=== PATIENT | female | born 1935 | race Caucasian/White ===

== ENCOUNTER 2017-10-09 04:00 | Emergency (ER) | payer MEDICARE, BC ==
[~2017-10-09] VITALS: Ht 127 cm; Wt 30.0 kg
[~2017-10-09 04:00] MED LIST: NO HOME MEDS
[2017-10-09] MEDS ORDERED: LISI-600 PO (04:13)
[2017-10-09] MEDS ORDERED: HYDROcodone/acetaminophen 5mg/325mg tablet PO ONE (04:30)
[2017-10-09 07:41] VITALS: BP 125/71
== END 2017-10-09 07:43 | disposition home or self-care (01) ==
LOC: ER 04:00
DX: S43.004A Unspecified dislocation of right shoulder joint, initial encounter (principal); M15.9 Polyosteoarthritis, unspecified; I10 Essential (primary) hypertension; Z91.02 Food additives allergy status; Z79.899 Other long term (current) drug therapy; W19.XXXA Unspecified fall, initial encounter; Y93.89 Activity, other specified; Y92.89 Other specified places as the place of occurrence of the external cause; Y99.8 Other external cause status
CPT/HCPCS: 23650; 72125; 72128; 72131; 73020; 99284

== ENCOUNTER 2020-01-15 13:15 | Emergency (ER) | payer MEDICARE, BC ==
[~2020-01-15] VITALS: Ht 134.6 cm; Wt 29.6 kg
[~2020-01-15 13:15] MED LIST changes: +LISI-600 PO; -NO HOME MEDS
--- NOTE | 2020-01-15 13:57 | NUR ---
shoulder xray being done at bedside.
[2020-01-15] MEDS ORDERED: propofol 10mg/ml 20ml vial IV ONE (14:25)
--- NOTE | 2020-01-15 14:50 | NUR ---
DR. BRANNON MANIPULATED RIGHT SHOULDER WITHOUT ANY PROPOFOL, PER PTS REQUEST. PT TOLERATED WELL.
[2020-01-15 14:51] VITALS: BP 182/94
--- NOTE | 2020-01-15 14:54 | NUR ---
REPEAT XRAY COMPLETED FOR POST MANIPULATION
== END 2020-01-15 15:16 | disposition home or self-care (01) ==
LOC: ER 13:15
DX: S43.004A Unspecified dislocation of right shoulder joint, initial encounter (principal); I10 Essential (primary) hypertension; Z98.890 Other specified postprocedural states; Z88.8 Allergy status to other drugs, medicaments and biological substances; Z79.899 Other long term (current) drug therapy; X58.XXXA Exposure to other specified factors, initial encounter; Y93.89 Activity, other specified; Y92.89 Other specified places as the place of occurrence of the external cause; Y99.8 Other external cause status
CPT/HCPCS: 23650; 73020; 73030; 99284

== ENCOUNTER 2021-03-20 16:51 | Emergency (ER) | payer MEDICARE, BC ==
[~2021-03-20] VITALS: Ht 134.6 cm; Wt 29.6 kg
[~2021-03-20 16:51] MED LIST changes: -LISI-600 PO; +LISI20TA28 PO
[2021-03-20] MEDS ORDERED: acetaminophen 325mg tablet PO ONE (18:35)
[2021-03-20] MEDS ORDERED: LIDOcaine 1% 30ml preserv. free vial IJ ONE (19:45)
[2021-03-20 20:55] VITALS: BP 138/72
== END 2021-03-20 20:56 | disposition home or self-care (01) ==
LOC: ER 16:52
DX: S43.004A Unspecified dislocation of right shoulder joint, initial encounter (principal); I10 Essential (primary) hypertension; Z88.8 Allergy status to other drugs, medicaments and biological substances; Z98.890 Other specified postprocedural states; Z91.018 Allergy to other foods; Z79.899 Other long term (current) drug therapy; X58.XXXA Exposure to other specified factors, initial encounter; Y93.89 Activity, other specified; Y92.89 Other specified places as the place of occurrence of the external cause; Y99.8 Other external cause status
CPT/HCPCS: 23650; 73020; 73030; 99284; J2001

== ENCOUNTER 2021-07-03 16:38 | Emergency (ER) | payer MEDICARE, BC ==
[~2021-07-03] VITALS: Ht 157.5 cm; Wt 27.3 kg
[~2021-07-03 16:38] MED LIST changes: +DOCU-148 PO; +LISI10TA27 PO; -LISI20TA28 PO
[2021-07-03 16:58] VITALS: BP 99/56
[2021-07-03] MEDS ORDERED: normal saline 1000ML IV soln IVB ONE (17:35)
--- NOTE | 2021-07-03 17:48 | NUR ---
attempt ekg, pt headed to CT at this time.
[2021-07-03 18:18] LABS: BASOPHILS % (AUTO) 0.1 % (0-1); EOSINOPHILS % (AUTO) 0.5 % (0-6); HEMATOCRIT 38.3 % (35.0-45.0); HEMOGLOBIN 13.1 g/dl (12.0-16.0); LYMPHOCYTES # (AUTO) 0.3 X10'3 (1.1-4.8); LYMPHOCYTES % (AUTO) 3.1 % (21-51); MEAN CORPUSCULAR HEMOGLOBIN 33.9 PG (27.0-31.0); MEAN CORPUSCULAR HGB CONC 34.3 g/dL (33.0-36.5); MEAN CORPUSCULAR VOLUME 98.7 FL (78-98); MEAN PLATELET VOLUME 7.4 FL (7.4-10.4); MONOCYTES # (AUTO) 0.3 X10'3 (0-0.9); MONOCYTES % (AUTO) 3.3 % (2-12); NEUTROPHILS # (AUTO) 8.6 X10'3 (1.8-7.7); PLATELET COUNT 275 X10'3 (140-440); RED BLOOD COUNT 3.88 X10'6 (4.20-5.60); RED CELL DISTRIBUTION WIDTH 14.4 % (11.5-14.5); WHITE BLOOD COUNT 9.2 X10'3 (4.5-11.0)
[2021-07-03 18:25] LABS: APTT 26 SECONDS (22-32)
[2021-07-03 18:32] LABS: ALANINE AMINOTRANSFERASE 50 U/L (12-78); ALBUMIN 3.4 G/DL (3.4-5.0); ALBUMIN/GLOBULIN RATIO 1.3 (1.1-1.5); ALKALINE PHOSPHATASE 130 IU/L (46-116); ANION GAP 6 (8-16); ASPARTATE AMINO TRANSFERASE 38 U/L (10-37); BILIRUBIN,TOTAL 0.4 MG/DL (0.1-1.0); BLOOD UREA NITROGEN 21 MG/DL (7-18); BUN/CREATININE RATIO 36.8 (6.6-38.0); CALCIUM 8.8 MG/DL (8.5-10.1); CHLORIDE 103 MMOL/L (99-107); CREATININE 0.57 MG/DL (0.40-0.90); GLUCOSE 97 MG/DL (70-104); LIPASE 236 U/L (73-393); POTASSIUM 4.6 MMOL/L (3.5-5.1); SODIUM 141 MMOL/L (135-145); TOTAL CARBON DIOXIDE 31.8 MMOL/L (24-32); eGFR > 90 ML/MIN
[2021-07-03 19:08] LABS: CLARITY,URINE SLIGHTLY CLOUDY (Clear); COLOR,URINE YELLOW (Yellow); GLUCOSE, URINE NEGATIVE (Neg); KETONES,URINE NEGATIVE (Neg); LEUKOCYTE ESTERASE ,URINE NEGATIVE (Neg); NITRITES, URINE NEGATIVE (Neg); OCCULT BLOOD,URINE NEGATIVE (Neg); PROTEIN,URINE NEGATIVE (Neg); UROBILINOGEN,URINE 0.2 E.U/dL (0.2-1.0)
[2021-07-03 19:21] LABS: UA COLLECTION TYPE CLN CATCH MIDSTREAM
[2021-07-03 19:22] LABS: AMORPHOUS URATES 1+; SQUAMOUS EPITHELIAL CELL,UR FEW /LPF (FEW)
[2021-07-03 19:23] LABS: BACTERIA,URINE 4+ /HPF (Neg); RBC,URINE 0-2 /HPF (0-2); WBC,URINE 0-4 /HPF (0-4)
--- NOTE | 2021-07-03 19:31 | NUR ---
[facility]MA STARTED STARTED TO PRODUCE STOOL
--- NOTE | 2021-07-03 21:06 | NUR ---
CONTACTED JOSE CARGO FOR PT TO GO BACK TO [facility] @20:56
--- NOTE | 2021-07-03 21:36 | NUR ---
pt had large bm from [facility] pt was cleaned up and new depends was placed
== END 2021-07-03 22:04 | disposition home or self-care (01) ==
LOC: ER 16:39
DX: R11.2 Nausea with vomiting, unspecified (principal); Z20.822 Contact with and (suspected) exposure to COVID-19; K59.00 Constipation, unspecified; F03.90 Unspecified dementia, unspecified severity, without behavioral disturbance, psychotic disturbance, mood disturbance, and anxiety; I10 Essential (primary) hypertension; Z98.890 Other specified postprocedural states; Z88.8 Allergy status to other drugs, medicaments and biological substances; Z79.899 Other long term (current) drug therapy
CPT/HCPCS: 36415; 71045; 74176; 80053; 81001; 83690; 83735; 85025; 85610; 85730; 87088; 87186; 87635; 93005; 99285; C9803; J7030; 87077

== ENCOUNTER 2021-08-05 20:34 | Emergency (ER) | payer MEDICARE, BC ==
--- NOTE | 2021-08-05 21:18 | NUR ---
lab at bedside
[2021-08-05 21:38] LABS: BASOPHILS % (AUTO) 0.1 % (0-1); EOSINOPHILS % (AUTO) 0.1 % (0-6); HEMATOCRIT 34.5 % (35.0-45.0); HEMOGLOBIN 11.7 g/dl (12.0-16.0); LYMPHOCYTES # (AUTO) 0.5 X10'3 (1.1-4.8); LYMPHOCYTES % (AUTO) 7.5 % (21-51); MEAN CORPUSCULAR HEMOGLOBIN 32.5 PG (27.0-31.0); MEAN CORPUSCULAR VOLUME 95.5 FL (78-98); MEAN PLATELET VOLUME 7.2 FL (7.4-10.4); MONOCYTES # (AUTO) 0.4 X10'3 (0-0.9); NEUTROPHILS # (AUTO) 5.5 X10'3 (1.8-7.7); NEUTROPHILS % (AUTO) 86.3 % (42-75); PLATELET COUNT 372 X10'3 (140-440); RED BLOOD COUNT 3.61 X10'6 (4.20-5.60); RED CELL DISTRIBUTION WIDTH 14.2 % (11.5-14.5); WHITE BLOOD COUNT 6.4 X10'3 (4.5-11.0)
[2021-08-05] MEDS ORDERED: normal saline 1000ML IV soln IVB ONE (21:40)
[2021-08-05 21:53] LABS: ANION GAP 5 (8-16); BILIRUBIN,TOTAL 0.5 MG/DL (0.1-1.0); BLOOD UREA NITROGEN 40 MG/DL (7-18); BUN/CREATININE RATIO 72.7 (6.6-38.0); CHLORIDE 109 MMOL/L (99-107); CREATININE 0.55 MG/DL (0.40-0.90); GLUCOSE 87 MG/DL (70-104); POTASSIUM 4.1 MMOL/L (3.5-5.1); SODIUM 144 MMOL/L (135-145); TOTAL CARBON DIOXIDE 30.2 MMOL/L (24-32); TOTAL PROTEIN 6.2 G/DL (6.4-8.2); eGFR > 90 ML/MIN
[2021-08-05 21:54] LABS: ALANINE AMINOTRANSFERASE 17 U/L (12-78); ALBUMIN 2.9 G/DL (3.4-5.0); ALBUMIN/GLOBULIN RATIO 0.9 (1.1-1.5); ALKALINE PHOSPHATASE 74 IU/L (46-116); ASPARTATE AMINO TRANSFERASE 21 U/L (10-37); LIPASE 154 U/L (73-393)
[2021-08-05 22:00] LABS: CLARITY,URINE CLOUDY (Clear); COLOR,URINE YELLOW (Yellow); GLUCOSE, URINE NEGATIVE (Neg); KETONES,URINE NEGATIVE (Neg); LEUKOCYTE ESTERASE ,URINE SMALL (Neg); NITRITES, URINE NEGATIVE (Neg); OCCULT BLOOD,URINE NEGATIVE (Neg); PH,URINE 6.5 (4.8-8.0); PROTEIN,URINE TRACE mg/dl (Neg)
[2021-08-05 22:03] LABS: UA COLLECTION TYPE STRAIGHT CATH
[2021-08-05 22:06] LABS: BACTERIA,URINE 4+ /HPF (Neg)
[2021-08-05 22:07] LABS: MUCUS STRANDS FEW /LPF (Neg); SQUAMOUS EPITHELIAL CELL,UR FEW /LPF (FEW)
[2021-08-05 22:08] LABS: YEAST MODERATE /HPF (NEGATIVE)
[2021-08-05] MEDS ORDERED: CefTRIAXone 2gm/NS 100ml IVPB 100 ML IV ONE (22:15)
[2021-08-05] MEDS ORDERED: CEPH250T PO (22:21)
--- NOTE | 2021-08-05 22:55 | NUR ---
SPOKE WITH THE KIM LERNER SHE IS AWARE OF HER MOTHER MEDICAL STATUS AT THIS TIME. ALSO SPOKE WITH [facility] NURSE AYERS REPORT GIVEN TO HER IN REGARDS TO [facility] UPDATES STATUS
--- NOTE | 2021-08-05 22:57 | NUR ---
CURRENTLY AWAITING AMBULANCE
--- NOTE | 2021-08-06 00:19 | NUR ---
AWAITING [facility] TO TRANSPORT PATIENT TO [facility]
[2021-08-06 00:53] VITALS: BP 158/85
== END 2021-08-06 00:57 | disposition home or self-care (01) ==
LOC: ER 20:34
DX: E86.0 Dehydration (principal); N39.0 Urinary tract infection, site not specified; R53.1 Weakness; I10 Essential (primary) hypertension; Z98.890 Other specified postprocedural states; Z88.8 Allergy status to other drugs, medicaments and biological substances; Z79.2 Long term (current) use of antibiotics; Z79.899 Other long term (current) drug therapy
CPT/HCPCS: 36415; 80053; 81001; 83690; 85025; 87088; 96365; 99284; J0696; J7030